=== PATIENT | female | born 1965 | race Caucasian/White ===

== ENCOUNTER → 2018-02-01 | Outpatient (CLI) | payer OTHER ==
[~2018-02-01] MED LIST: ALEVE220 MG PO; ARIP10 PO; Ativan1 MG PO; CIPR500 PO; CLON.5 PO; Cymbalta20 MG PO; ESTRADIOL PO; GABA100 PO; HYDR1TAB94 PO; Keflex500 MG PO; LORTAB 7.5-3251 EACH PO; MONT10T PO; NAPR500 PO; Norco 10-325 T1 EACH PO; Norco 5-325 Ta1 EACH PO; Norco 7.5-3251 EACH PO; ONDA4ODT SL; PROC10 PO; PROM25 PO; Percocet 5-3251 EACH PO; RXOXYACE PO; RXPROM25 PO; Sudogest60 MG PO; TRAM50 PO; VICOPROFEN 2001 EACH PO; Zanaflex4 M1 PO; Zofran Odt4 MG PO; Zofran Odt4 MG SL; Zofran Odt8 MG SL; Zofran4 MG PO; Zofran8 MG PO
[2018-02-01 18:54] LABS: Appearance, Urine Cloudy (Clear); Bilirubin, Urine Neg (Neg); Blood, Urine 1+ (Neg); Color, Urine Yellow (P-Yellow); Glucose Qualitative, Urine Neg (Neg); Ketones, Urine 1+ (Neg); Leukocyte Esterase, Urine 2+ (Neg); Nitrite, Urine Pos (Neg); Protein, Urine Neg (Neg); Specific Gravity, Urine 1.015 (1.003-1.022); Urobilinogen, Urine NORM (Normal)
[2018-02-01 19:05] LABS: Bacteria Many /hpf; Squamous Epithelial Cells Many /hpf (Few); White Blood Cells, Urine 25-50 /hpf (0-5)
== END ==
LOC: LAB 12:00 → LAB SHORT 12:00
PROVIDERS: Hospitalist
DX: R10.2 Pelvic and perineal pain (principal)
CPT/HCPCS: 81001; 87077; 87086; 87186

== ENCOUNTER → 2018-05-13 | Outpatient (CLI) | payer OTHER | END | disposition home or self-care (01) | LOC: LAB EV 17:27 → LAB SHORT 17:27 | DX: N12 Tubulo-interstitial nephritis, not specified as acute or chronic (principal) | CPT/HCPCS: 87077; 87086; 87186 ==

== ENCOUNTER 2018-12-20 17:09 | Emergency (ER) | payer OTHER ==
[~2018-12-20] VITALS: Ht 162.6 cm; Wt 68.0 kg
[2018-12-20 18:20] LABS: Calcium, Ionized (POC) 1.22 mmol/L (1.10-1.46); Chloride (POC) 103 mmol/L (98-108); Creatinine (POC) 0.6 mg/dL (0.6-1.0); Glucose (ISTAT POC) 91 mg/dL (70-99); Hemoglobin (POC) 13.9 g/dL (12.0-16.0); Potassium (POC) 4.4 mmol/L (3.5-5.5); Sodium (POC) 141 mmol/L (135-148); Total CO2 (POC) 29 mmol/L (21-32)
== END 2018-12-20 19:03 | disposition home or self-care (01) ==
LOC: ER 17:09
PROVIDERS: Physician Assistant
DX: G89.29 Other chronic pain (principal); M54.5 Low back pain; Z88.8 Allergy status to other drugs, medicaments and biological substances; Z79.899 Other long term (current) drug therapy; Z79.891 Long term (current) use of opiate analgesic
CPT/HCPCS: 36415; 80047; 85014; 96372; 99283-25; J1885

== ENCOUNTER 2019-02-11 16:42 | Emergency (ER) | payer MEDICAID ==
[~2019-02-11] VITALS: Ht 162.6 cm; Wt 65.8 kg
[2019-02-11] MEDS ORDERED: SERT25 PO (17:14)
[2019-02-11] MEDS ORDERED: VICODIN 5-3001 EACH PO (17:14)
[2019-02-11] MEDS ORDERED: NAPR220 PO (17:15)
[2019-02-11] MEDS ORDERED: Zanaflex2 M1 PO (17:16)
[2019-02-11] MEDS ORDERED: LIDO700A20 TOP (18:15)
== END 2019-02-11 18:20 | disposition home or self-care (01) ==
LOC: ER 16:42
DX: M54.5 Low back pain (principal); J45.909 Unspecified asthma, uncomplicated; Z88.8 Allergy status to other drugs, medicaments and biological substances; Z79.899 Other long term (current) drug therapy
CPT/HCPCS: 96372; 99283-25; J1885

== ENCOUNTER → 2019-03-01 | Outpatient (CLI) | payer OTHER ==
[~2019-03-01] MED LIST changes: +LIDO700A20 TOP; +NAPR220 PO; +SERT25 PO; +VICODIN 5-3001 EACH PO; +Zanaflex2 M1 PO
[2019-03-01 18:13] LABS: Free Thyroxine 0.74 ng/dL (0.70-1.60); Thyroid Stimulating Hormone 1.32 uIU/mL (0.360-4.800); Triiodothyronine, Free 2.53 pg/mL (2.18-3.98)
== END | disposition home or self-care (01) ==
LOC: LAB 17:10 → LAB SHORT 17:10
PROVIDERS: Hospitalist
DX: E03.9 Hypothyroidism, unspecified (principal)
CPT/HCPCS: 84439; 84443; 84481

== ENCOUNTER → 2019-03-03 | Outpatient (CLI) | payer OTHER ==
[~2019-03-03] MED LIST changes: +ALBU90OI61 INH; +Bactrim 400-801 EACH PO; -ESTRADIOL PO; +Estradiol1 MG PO; +Flector1 EACH TOP; +HYDHCL25 PO; +LORA.5 PO; +ONDA4ODT MM; +QVAR REDIHALE10.6 G1 INH; +SERT50 PO; -VICODIN 5-3001 EACH PO; -Zanaflex2 M1 PO; +Zanaflex4 MG PO; +Zantac150 MG PO
[2019-03-03 16:47] LABS: BASOPHILS ABSOLUTE AUTO 0.03 K/mm3 (0.00-0.23); BASOPHILS PERCENT AUTO 0 % (0-2); EOSINOPHILS ABSOLUTE AUTO 0.05 K/mm3 (0.00-0.68); EOSINOPHILS PERCENT AUTO 1 % (0-6); Hematocrit 39.4 % (33.0-51.0); Hemoglobin 13.1 g/dL (11.5-16.0); IMMATURE GRAN ABSOLUTE AUTO 0.02 K/mm3 (0.00-0.10); IMMATURE GRAN PERCENT AUTO 0 % (0-1); LYMPHOCYTES ABSOLUTE AUTO 1.41 K/mm3 (0.84-5.20); LYMPHOCYTES PERCENT AUTO 20 % (21-46); MONOCYTES ABSOLUTE AUTO 0.47 K/mm3 (0.16-1.47); MONOCYTES PERCENT AUTO 7 % (4-13); Mean Corpuscular HGB 30.7 pg (26.0-34.0); Mean Corpuscular HGB Conc 33.2 g/dL (31.5-36.5); Mean Corpuscular Volume 92 fL (80-100); NEUTROPHILS ABSOLUTE AUTO 5.09 K/mm3 (1.96-9.15); NEUTROPHILS PERCENT AUTO 72 % (41-73); Platelet Count 318 K/mm3 (150-400); RDW Coefficient Variation 12.5 % (11.7-14.2); RDW Standard Deviation 41.9 fL (35.1-46.3); Red Blood Cell Count 4.27 M/mm3 (3.80-5.20); White Blood Cell Count 7.07 K/mm3 (4.00-11.30)
[2019-03-03 17:04] LABS: Alanine Aminotransfer (ALT/SGP 131 U/L (12-78); Albumin, Blood 3.9 g/dL (3.4-5.0); Alk Phos 89 U/L (40-126); Anion Gap 8 mmol/L (6-16); Aspartate Aminotrans (AST/SGOT 75 U/L (12-37); Bilirubin, Total 0.1 mg/dL (0.1-1.0); Blood Urea Nitrogen 14 mg/dL (8-24); Bun/Creatinine Ratio 16.9 (12.0-20.0); CO2, Blood 31 mmol/L (21-32); Chloride, Blood 103 mmol/L (98-108); Creatinine, Blood 0.83 mg/dL (0.40-1.00); Globulin, Blood 4.1 g/dL (2.2-4.0); Glomerular Filtration Rate >60 (60-); Glucose, Blood 89 mg/dL (70-99); Potassium, Blood 4.1 mmol/L (3.5-5.5); Sodium, Blood 142 mmol/L (136-145); Thyroid Stimulating Hormone 1.774 uIU/mL (0.360-4.800)
[2019-03-03 17:07] LABS: Troponin I <0.017 ng/mL (0.000-0.040)
== END ==
LOC: LAB SHORT 16:39 → LAB EV 16:39
PROVIDERS: Nurse Practitioner
DX: R07.89 Other chest pain (principal); R63.4 Abnormal weight loss
CPT/HCPCS: 80053; 84443; 84484; 85025

== ENCOUNTER 2019-03-07 16:58 | Observation (INO) | payer OTHER ==
[~2019-03-07] VITALS: Ht 162.6 cm; Wt 70.6 kg
[~2019-03-07 16:58] MED LIST changes: -ALBU90OI61 INH; -Bactrim 400-801 EACH PO; -Estradiol1 MG PO; -Flector1 EACH TOP; -HYDHCL25 PO; -LORA.5 PO; -ONDA4ODT MM; -QVAR REDIHALE10.6 G1 INH; -SERT50 PO; -Zanaflex4 MG PO; -Zantac150 MG PO
[2019-03-07 17:39] LABS: BASOPHILS ABSOLUTE AUTO 0.04 K/mm3 (0.00-0.23); BASOPHILS PERCENT AUTO 0 % (0-2); EOSINOPHILS ABSOLUTE AUTO 0.08 K/mm3 (0.00-0.68); EOSINOPHILS PERCENT AUTO 1 % (0-6); Hematocrit 44.9 % (33.0-51.0); Hemoglobin 14.6 g/dL (11.5-16.0); IMMATURE GRAN ABSOLUTE AUTO 0.03 K/mm3 (0.00-0.10); IMMATURE GRAN PERCENT AUTO 0 % (0-1); LYMPHOCYTES ABSOLUTE AUTO 2.28 K/mm3 (0.84-5.20); LYMPHOCYTES PERCENT AUTO 22 % (21-46); MONOCYTES ABSOLUTE AUTO 0.63 K/mm3 (0.16-1.47); MONOCYTES PERCENT AUTO 6 % (4-13); Mean Corpuscular HGB 30.4 pg (26.0-34.0); Mean Corpuscular HGB Conc 32.5 g/dL (31.5-36.5); Mean Corpuscular Volume 93 fL (80-100); Mean Platelet Volume 10.1 fL (9.1-12.4); NEUTROPHILS ABSOLUTE AUTO 7.29 K/mm3 (1.96-9.15); NEUTROPHILS PERCENT AUTO 70 % (41-73); Platelet Count 394 K/mm3 (150-400); RDW Coefficient Variation 12.4 % (11.7-14.2); Red Blood Cell Count 4.81 M/mm3 (3.80-5.20); White Blood Cell Count 10.35 K/mm3 (4.00-11.30)
[2019-03-07 17:58] LABS: Alanine Aminotransfer (ALT/SGP 227 U/L (12-78); Albumin, Blood 4.7 g/dL (3.4-5.0); Alk Phos 104 U/L (50-136); Anion Gap 8 mmol/L (6-16); Aspartate Aminotrans (AST/SGOT 121 U/L (12-37); Bilirubin, Total 0.3 mg/dL (0.1-1.0); Blood Urea Nitrogen 14 mg/dL (8-24); Bun/Creatinine Ratio 23.6 (12.0-20.0); CO2, Blood 26 mmol/L (21-32); Calcium, Blood 10.5 mg/dL (8.5-10.1); Chloride, Blood 103 mmol/L (98-108); Creatinine, Blood 0.59 mg/dL (0.40-1.00); Globulin, Blood 4.5 g/dL (2.2-4.0); Glomerular Filtration Rate >60 (60-); Glucose, Blood 87 mg/dL (70-99); Potassium, Blood 3.7 mmol/L (3.5-5.5); Sodium, Blood 137 mmol/L (136-145); Total Protein, Blood 9.2 g/dL (6.4-8.2)
[2019-03-07 19:53] LABS: Free Thyroxine 0.78 ng/dL (0.70-1.60); Magnesium, Blood 2.4 mg/dL (1.6-2.4)
[2019-03-07 19:55] LABS: Thyroid Stimulating Hormone 1.18 uIU/mL (0.360-4.800)
[2019-03-07] MEDS ORDERED: QVAR REDIHALE10.6 G1 INH (21:36)
[2019-03-07] MEDS ORDERED: ALBU90OI61 INH ×2 (21:36)
[2019-03-07] MEDS ORDERED: Flector1 EACH TOP (21:38)
[2019-03-07] MEDS ORDERED: SERT50 PO ×2 (21:56)
[2019-03-07] MEDS ORDERED: Estradiol1 MG PO ×2 (22:02)
[2019-03-07] MEDS ORDERED: Sudogest60 MG PO (22:03)
[2019-03-07] MEDS ORDERED: HYDHCL25 PO ×2 (22:04)
[2019-03-07] MEDS ORDERED: Zanaflex4 MG PO ×2 (22:05)
[2019-03-07] MEDS ORDERED: Zantac150 MG PO ×2 (22:05)
[2019-03-07] MEDS ORDERED: ONDA4ODT MM ×2 (22:07)
[2019-03-07] MEDS ORDERED: Bactrim 400-801 EACH PO ×2 (22:08)
[2019-03-08 02:02] LABS: Source, Urine Voided
[2019-03-08 02:05] LABS: Bilirubin, Urine Neg (Neg); Blood, Urine Neg (Neg); Glucose Qualitative, Urine Neg (Neg); Ketones, Urine Neg (Neg); Leukocyte Esterase, Urine Neg (Neg); Nitrite, Urine Neg (Neg); Protein, Urine Neg (Neg); Urobilinogen, Urine NORM (Normal)
[2019-03-08 02:09] LABS: Appearance, Urine Clear (Clear); Color, Urine Yellow (P-Yellow)
[2019-03-08 02:14] LABS: U Amphetamine Screen Not Detected; U Barbituate Screen Not Detected; U Benzodiazapine Screen DETECTED; U Cocaine Screen Not Detected; U Methamphetamine Screen Not Detected
[2019-03-08 02:15] LABS: U Buprenorphine Screen Not Detected; U Cannabinoids Screen Not Detected; U Methadone Screen Not Detected; U Opiates Screen DETECTED; U Oxycodone Screen Not Detected; U Phencyclidine Screen Not Detected; U Propoxyphene Screen Not Detected
[2019-03-08 06:04] LABS: Anion Gap 8 mmol/L (6-16); Blood Urea Nitrogen 14 mg/dL (8-24); CO2, Blood 26 mmol/L (21-32); Chloride, Blood 108 mmol/L (98-108); Creatinine, Blood 0.64 mg/dL (0.40-1.00); Glomerular Filtration Rate >60 (60-); Glucose, Blood 107 mg/dL (70-99); Potassium, Blood 3.9 mmol/L (3.5-5.5); Sodium, Blood 142 mmol/L (136-145)
[2019-03-08 06:05] LABS: Calcium, Blood 8.2 mg/dL (8.5-10.1)
--- NOTE | 2019-03-08 06:16 | NUR ---
03/08/19 0415 PT C/O SEVERE FRONTAL HEADACHE AT LEVEL "9-10". RN WENT TO GET PAIN MED IN MED ROOM. WHEN RN RETURNED AT 0422 TO ROOM, PT WAS UNRESPONSIVE AND UNABLE TO AROUSE. HANDS CLENCHED AND ARMS STIFF AGAINST CHEST. EYES ROLLED BACK. PAGED ESTIMATING MANAGER, JOSELYN Del Real. VITALS TAKEN. SEE MEDICAL RECORDS FOR VITALS TAKEN. RN GAVE PT ATIVAN 2 MG IV AT 0434. IMMEDIATELY PT AWAKENED AND ALERT X 4. SHE WAS UNAWARE OF EVENT AND JUST REMEMBERED HAVING A SEVERE HEADACHE. WILL MONITOR. SEIZURE PADS ON BED AND BED ALARM ON. REMINDED PT TO NOT GET UP WITHOUT HELP OF STAFF. SHE AGREES.
--- NOTE | 2019-03-08 06:25 | NUR ---
03/08/19 05[address] NOT[address]IED DR ADORNO OF EVENT AND ACTION TAKEN. ASKED IF SHE HAD AM LABS AND RN CONFIRMED "YES." NO FURTHER ORDERS GIVEN. VITALS REMAIN STABLE.
--- NOTE | 2019-03-08 06:36 | NUR ---
03/08/19 0615 SLEEPING WITHOUT DISTRESS. ALERT X 4. NEURO STATUS UNCHANGED FROM 0230. BED ALARM ON. LABWORK STABLE.
--- NOTE | 2019-03-08 18:06 | NUR ---
PT IS A/OX3, COOPERATIVE, THE PT APPEARS TO BE BREATHING EASILY ON RA, THE PT WAS MEDICATED FOR PAIN T/O THE DAY THE WAS MEDICATED FOR ANXIETY X1 THIS AFTERNOON, THIS AM THE PT REPORTED THAT SHE WAS QUITE UPSET THAT DR. KEMP HAD CAME IN TO SEE HER, SHE STATED THAT SHE WAS VERY SUPRISED BECAUSE SHE HAD FIRED HER HER DOCTOR SEVERAL DAYS AGO, THE PT ALSO STATED THAT SHE WHOULD LIKE TO TALK TO THE PT ADVOCATE REGARDING SOMETHING THAT HAPPENED IN THE ER, THE PT ADVOCATE WAS CALLED AND CAME TO THE ROOM, HOWEVER THE PT WAS SLEEPING AT THE TIME, I MENTIONED TO THE PT THAT THE ADVOCATE HAD CAME BY TO SEE HER AND THAT SHE WOULD BE BACK AROUND 1400 AT THAT TIME, THE PT AGAIN SAID THAT SHE WANTED SOMEONE ELSE TO BE OVER HER CARE OTHER THAN DR. KEMP, I CALLED THE NURSING JUNIOR ART DIRECTOR AT THAT TIME AROUND 10OO, THIS AFTERNOON AT ABOUT 1330 THE PT BECAME VERY UPSET AND SHOUTING AT THE STAFF, FAMILY WALKED DOWN TO THE ADVOCATE OFFICE AND ASKED HER TO COME SPEAK WITH THE PT AT THAT TIME, AND THE NURSING JUNIOR ART DIRECTOR WAS CALLED AGAIN AND CAME UP AND SPOKE WITH THE PT, A NEW DOCTOR WAS ASSIGNED TO THE PT AND THE PT SEEMS SATISFIED AT THIS TIME, THE PT WAS GIVEN ATIVAN AND ATARAX AT THIS TIME AND HAS BEEN MORE CALM, CALL LIGHT IN REACH, WILL CONTINUE TO MONITOR AND ASSESS FOR CHANGES
--- NOTE | 2019-03-09 05:24 | NUR ---
SHIFT SUMMARY: PT IS ALERT AND ORIENTED. PT IS CALM AND COOPERATIVE WITH CARE, BUT ANXIOUS AT TIMES, MEDICATING FOR ANXIETY PER EMAR. PT REPORTS PAIN ON ONE OCCASION, GAVE SCHEDULED HYDROCODONE. PT DENIES NAUSEA, VOMITING, AND SOB. PT SLEPT INTERMITTENTLY THROUGHOUT THE NIGHT. NO SEIZURE ACTIVITY OVERNIGHT. NO ACUTE CHANGES OR COMPLICATIONS THIS SHIFT. WILL REPORT TO DAY NURSE.
[2019-03-09 05:52] LABS: Anion Gap 4 mmol/L (6-16); Blood Urea Nitrogen 11 mg/dL (8-24); CO2, Blood 25 mmol/L (21-32); Calcium, Blood 7.8 mg/dL (8.5-10.1); Chloride, Blood 111 mmol/L (98-108); Glomerular Filtration Rate >60 (60-); Glucose, Blood 104 mg/dL (70-99); Potassium, Blood 3.9 mmol/L (3.5-5.5); Sodium, Blood 140 mmol/L (136-145)
[2019-03-09] MEDS ORDERED: LORA.5 PO ×2 (13:16)
--- NOTE | 2019-03-09 14:47 | NUR ---
PT DISCHARGED THE PT VERBALIZED UNDERSTANDING OF THE DC INSTRUCTIONS, WRITTEN PERSCRIPTION GIVEN TO THE PT FOR ATIVAN, PT WAS ENCOURAGED TO ESTABLISH A PCP JAMIE, THE PT APPEARED TO BE BREATHING EASILY ON RA AT THE TIME OF DC, THE PT DECLINED A WHEELCHAIR AND AMBULATED OUT STEADY ON HER FEET ACCOMPANIED BY HER DAUGHTER
== END 2019-03-09 14:38 | disposition home or self-care (01) ==
LOC: ER 16:58 → MEDS 16:59 → ENPENDDIS 03-09 14:34 → MEDS 03-09 14:38
PROVIDERS: Emergency Medicine; Family Medicine; Hospitalist; Internal Medicine; ADMIT Hospitalist
DX: R29.2 Abnormal reflex (principal); R25.1 Tremor, unspecified; R06.02 Shortness of breath; T50.995A Adverse effect of other drugs, medicaments and biological substances, initial encounter; G89.4 Chronic pain syndrome; Z88.8 Allergy status to other drugs, medicaments and biological substances; Z79.899 Other long term (current) drug therapy
CPT/HCPCS: 36415; 70450; 76536; 80048; 80053; 81003; 83605; 83735; 84439; 84443; 85025; 87070; 87081; 93005; 93010; 96361; 96374; 96376; 99285-25; A9270-GY; G0378; J2060; J3480; J7030

== ENCOUNTER → 2019-03-07 | Outpatient (CLI) | payer OTHER ==
[2019-03-07 15:26] LABS: BASOPHILS ABSOLUTE AUTO 0.04 K/mm3 (0.00-0.23); BASOPHILS PERCENT AUTO 1 % (0-2); EOSINOPHILS ABSOLUTE AUTO 0.12 K/mm3 (0.00-0.68); EOSINOPHILS PERCENT AUTO 2 % (0-6); Hematocrit 38.5 % (33.0-51.0); Hemoglobin 12.9 g/dL (11.5-16.0); IMMATURE GRAN ABSOLUTE AUTO 0.03 K/mm3 (0.00-0.10); IMMATURE GRAN PERCENT AUTO 0 % (0-1); LYMPHOCYTES ABSOLUTE AUTO 2.39 K/mm3 (0.84-5.20); LYMPHOCYTES PERCENT AUTO 33 % (21-46); MONOCYTES ABSOLUTE AUTO 0.54 K/mm3 (0.16-1.47); MONOCYTES PERCENT AUTO 7 % (4-13); Mean Corpuscular HGB 30.7 pg (26.0-34.0); Mean Corpuscular HGB Conc 33.5 g/dL (31.5-36.5); Mean Corpuscular Volume 92 fL (80-100); NEUTROPHILS ABSOLUTE AUTO 4.19 K/mm3 (1.96-9.15); NEUTROPHILS PERCENT AUTO 57 % (41-73); Platelet Count 339 K/mm3 (150-400); RDW Coefficient Variation 12.6 % (11.7-14.2); RDW Standard Deviation 42.2 fL (35.1-46.3); White Blood Cell Count 7.31 K/mm3 (4.00-11.30)
== END | disposition home or self-care (01) ==
LOC: LAB SHORT 15:21 → LAB EV 15:21
PROVIDERS: Physician Assistant
DX: R42 Dizziness and giddiness (principal)
CPT/HCPCS: 85025

== ENCOUNTER → 2019-03-21 | Outpatient (CLI) | payer OTHER ==
[~2019-03-21] MED LIST changes: +ALBU90OI61 INH; +Bactrim 400-801 EACH PO; +Estradiol1 MG PO; +Flector1 EACH TOP; +HYDHCL25 PO; +LORA.5 PO; +ONDA4ODT MM; +QVAR REDIHALE10.6 G1 INH; +SERT50 PO; +Zanaflex4 MG PO; +Zantac150 MG PO
[2019-03-21 11:46] LABS: Anion Gap 9 mmol/L (6-16); Blood Urea Nitrogen 10 mg/dL (8-24); Bun/Creatinine Ratio 14.7 (12.0-20.0); CO2, Blood 28 mmol/L (21-32); Calcium, Blood 9.6 mg/dL (8.5-10.1); Chloride, Blood 104 mmol/L (98-108); Creatinine, Blood 0.68 mg/dL (0.40-1.00); Glomerular Filtration Rate >60 (60-); Glucose, Blood 101 mg/dL (70-99); Potassium, Blood 3.8 mmol/L (3.5-5.5); Sodium, Blood 141 mmol/L (136-145)
== END ==
LOC: LAB SHORT 11:37 → LAB EV 11:37
PROVIDERS: Emergency Medicine
DX: F40.298 Other specified phobia (principal)
CPT/HCPCS: 80048

== ENCOUNTER 2019-06-14 12:59 | Emergency (ER) | payer OTHER ==
[~2019-06-14] VITALS: Ht 162.6 cm; Wt 65.8 kg
[~2019-06-14 12:59] MED LIST changes: +LORA1 SL
[2019-06-14 15:00] LABS: BASOPHILS ABSOLUTE AUTO 0.03 K/mm3 (0.00-0.23); BASOPHILS PERCENT AUTO 1 % (0-2); EOSINOPHILS ABSOLUTE AUTO 0.04 K/mm3 (0.00-0.68); EOSINOPHILS PERCENT AUTO 1 % (0-6); Hematocrit 41.5 % (33.0-51.0); Hemoglobin 13.6 g/dL (11.5-16.0); IMMATURE GRAN ABSOLUTE AUTO 0.01 K/mm3 (0.00-0.10); IMMATURE GRAN PERCENT AUTO 0 % (0-1); LYMPHOCYTES ABSOLUTE AUTO 1.86 K/mm3 (0.84-5.20); LYMPHOCYTES PERCENT AUTO 33 % (21-46); MONOCYTES ABSOLUTE AUTO 0.36 K/mm3 (0.16-1.47); MONOCYTES PERCENT AUTO 6 % (4-13); Mean Corpuscular HGB 30.5 pg (26.0-34.0); Mean Corpuscular HGB Conc 32.8 g/dL (31.5-36.5); Mean Corpuscular Volume 93 fL (80-100); Mean Platelet Volume 10.2 fL (9.1-12.4); NEUTROPHILS ABSOLUTE AUTO 3.36 K/mm3 (1.96-9.15); NEUTROPHILS PERCENT AUTO 59 % (41-73); Platelet Count 284 K/mm3 (150-400); RDW Coefficient Variation 11.9 % (11.7-14.2); RDW Standard Deviation 41.1 fL (35.1-46.3); Red Blood Cell Count 4.46 M/mm3 (3.80-5.20); White Blood Cell Count 5.66 K/mm3 (4.00-11.30)
[2019-06-14 15:23] LABS: Acetaminophen, Random <2.0 ug/mL (10.0-30.0); Alanine Aminotransfer (ALT/SGP 61 U/L (12-78); Albumin, Blood 3.8 g/dL (3.4-5.0); Alk Phos 78 U/L (50-136); Anion Gap 5 mmol/L (6-16); Aspartate Aminotrans (AST/SGOT 29 U/L (12-37); Bilirubin, Total 0.2 mg/dL (0.1-1.0); Blood Urea Nitrogen 12 mg/dL (8-24); Bun/Creatinine Ratio 19.8 (12.0-20.0); CO2, Blood 29 mmol/L (21-32); Calcium, Blood 8.6 mg/dL (8.5-10.1); Chloride, Blood 108 mmol/L (98-108); Creatinine, Blood 0.61 mg/dL (0.40-1.00); Ethanol (Alcohol), Blood, Med <3 mg/dL; Globulin, Blood 3.7 g/dL (2.2-4.0); Glomerular Filtration Rate >60 (60-); Glucose, Blood 90 mg/dL (70-99); Potassium, Blood 4.1 mmol/L (3.5-5.5); Salicylate 1.8 mg/dL (2.8-20.0); Sodium, Blood 142 mmol/L (136-145); Total Protein, Blood 7.5 g/dL (6.4-8.2)
[2019-06-14 15:27] LABS: Thyroid Stimulating Hormone 0.957 uIU/mL (0.360-4.800)
[2019-06-14] MEDS ORDERED: Cymbalta30 MG PO (15:53)
== END 2019-06-14 16:05 | disposition home or self-care (01) ==
LOC: ER 12:59
PROVIDERS: Emergency Medicine
DX: F32.9 Major depressive disorder, single episode, unspecified (principal); M54.5 Low back pain; G89.29 Other chronic pain; Z88.8 Allergy status to other drugs, medicaments and biological substances; Z88.6 Allergy status to analgesic agent; Z79.899 Other long term (current) drug therapy; Z79.891 Long term (current) use of opiate analgesic; J45.909 Unspecified asthma, uncomplicated
CPT/HCPCS: 36415; 80053; 84443; 85025; 99283; G0480